=== PATIENT | male | born 1995 | race African-American/Black ===

== ENCOUNTER 2018-11-11 15:34 | Emergency (ER) | payer OTHER ==
[2018-11-11] MEDS ORDERED: ONDANSETRON 4 MG/2 ML VIAL IVP ONE (15:55)
[2018-11-11] MEDS ORDERED: NS(*) 0.9% 1000 ML BAG 1,000 ML IV ONE (15:55)
--- NOTE | 2018-11-11 15:57 | ER Report ---
History and Physical Time Seen By MD: 15:50 Hx. of Stated Complaint: weakness diff breathing HPI/ROS CHIEF COMPLAINT: Chest pain HISTORY OF PRESENT ILLNESS: This is a 22-year-old male who presents to the emergency department for chest pain. 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 Patient arrives with rapid breathing, coughing however he is alert and oriented. No history of asthma. Otherwise healthy. No recent illnesses. No rashes. No nausea or vomiting. REVIEW OF SYSTEMS: Constitutional: No fever, no chills. Eyes: No discharge. ENT: No sore throat. Cardiovascular: As above. Respiratory: As above. Gastrointestinal: No abdominal pain, no vomiting. Genitourinary: No hematuria. Musculoskeletal: No back pain. Skin: No rashes. Neurological: No headache. Allergies: Coded Allergies: No Known Allergies (Verified Allergy, Unknown, 11/11/18) Home Meds Active Scripts Albuterol Sulfate 90 Mcg/Act (PROAIR HFA 90 MCG/ACT) 8.5 Gm Hfa.aer.ad, 1-2 PUFF IH 3-4XD, #1 INHALER 0 Refills Prov:ALISE GIEMNEZ Jenniffer [employer]WORK CONS[employer]ANT- 11/11/18 Past Medical/Surgical History The patient has a past medical and surgical history of wisdom teeth extraction. Constitutional Vital Sign - Last 24 Hours 11/11/18 11/11/18 11/11/18 11/11/18 15:41 15:53 16:00 16:30 Temp 98.1 Pulse 87 Resp 22 B/P (MAP) 112/75 (87) 112/75 109/70 (83) 124/87 (99) Pulse Ox 93 O2 Delivery Room Air 11/11/18 11/11/18 11/11/18 11/11/18 16:34 16:34 16:34 17:00 Pulse 84 78 Resp 18 18 B/P (MAP) 121/74 (90) Pulse Ox 96 99 O2 Delivery Room Air 11/11/18 11/11/18 11/11/18 11/11/18 17:04 17:09 17:51 18:09 Pulse 89 89 81 Resp 17 24 9 B/P (MAP) 122/70 (87) Pulse Ox 88 92 96 11/11/18 11/11/18 18:14 18:30 Pulse 82 Resp 12 B/P (MAP) 108/75 (86) Pulse Ox 93 Physical Exam General Appearance: The patient is alert, has no immediate need for airway protection and no signs of toxicity, coughing, very anxious. Eyes: Pupils equal and round no pallor or injection. ENT, Mouth: Mucous membranes are moist. Respiratory: There are no retractions, lungs are clear to auscultation. Cardiovascular: Regular rate and rhythm, systolic murmur, no clicks or rubs. Gastrointestinal: Abdomen is soft and non tender, no masses, bowel sounds normal. Neurological: Alert and oriented 4. Moving all extremities. Following all commands. No focal neuro deficits. Skin: Warm and dry, no rashes. Musculoskeletal: Neck is supple non tender. Extremities are nontender, nonswollen and have full range of motion. DIFFERENTIAL DIAGNOSIS: After history and physical exam differential diagnosis was considered for chest pain including but not limited to myocardial ischemia, pericarditis pulmonary embolus, chest wall pain, pleural inflammation and pulmonary infectious causes. Medical Decision Making Data Points Result Diagram: 11/11/18 1545 11/11/18 1545 Laboratory Hematology Test 11/11/18 15:45 Red Blood Count 5.76 M/uL (4.00-5.60) Mean Corpuscular Volume 93.8 fL (80.0-96.0) Mean Corpuscular Hemoglobin 31.4 pg (26.0-33.0) Mean Corpuscular Hemoglobin Concent 33.4 g/dL (32.0-36.0) Red Cell Distribution Width 14.1 % (11.5-14.5) Mean Platelet Volume 7.1 fL (7.2-11.1) Neutrophils (%) (Auto) 74.8 % (39.4-72.5) Lymphocytes (%) (Auto) 18.3 % (17.6-49.6) Monocytes (%) (Auto) 6.1 % (4.1-12.4) Eosinophils (%) (Auto) 0.3 % (0.4-6.7) Basophils (%) (Auto) 0.5 % (0.3-1.4) Nucleated RBC Relative Count (auto) 0.1 /100WBC Neutrophils # (Auto) 6.4 K/uL (2.0-7.4) Lymphocytes # (Auto) 1.6 K/uL (1.3-3.6) Monocytes # (Auto) 0.5 K/uL (0.3-1.0) Eosinophils # (Auto) 0.0 K/uL (0.0-0.5) Basophils # (Auto) 0.0 K/uL (0.0-0.1) Nucleated RBC Absolute Count (auto) 0.01 K/uL D-Dimer Quantitative (PE/DVT) < 0.27 ug/ml (0-0.50) Sodium Level 141 mmol/L (137-145) Potassium Level 4.1 mmol/L (3.5-5.0) Chloride Level 103 mmol/L (98-107) Carbon Dioxide Level 17 mmol/L (22-30) Blood Urea Nitrogen 15 mg/dl (9-21) Creatinine 1.40 mg/dl (0.66-1.25) Glomerular Filtration Rate Calc > 60.0 Random Glucose 71 mg/dl (75-110) Calcium Level 9.9 mg/dl (8.4-10.2) Total Bilirubin 0.8 mg/dl (0.2-1.3) Aspartate Amino Transf (AST/SGOT) 35 U/L (0-35) Alanine Aminotransferase (ALT/SGPT) 26 U/L (0-56) Alkaline Phosphatase 77 U/L (0-126) Troponin I < 0.012 ng/ml Total Protein 8.6 g/dl (6.3-8.2) Albumin 5.4 g/dl (3.5-5.0) Chemistry Test 11/11/18 15:45 White Blood Count 8.5 k/uL (4.5-11.0) Red Blood Count 5.76 M/uL (4.00-5.60) Hemoglobin 18.1 g/dL (14.0-18.0) Hematocrit 54.1 % (42.0-52.0) Mean Corpuscular Volume 93.8 fL (80.0-96.0) Mean Corpuscular Hemoglobin 31.4 pg (26.0-33.0) Mean Corpuscular Hemoglobin Concent 33.4 g/dL (32.0-36.0) Red Cell Distribution Width 14.1 % (11.5-14.5) Platelet Count 238 K/uL (150-450) Mean Platelet Volume 7.1 fL (7.2-11.1) Neutrophils (%) (Auto) 74.8 % (39.4-72.5) Lymphocytes (%) (Auto) 18.3 % (17.6-49.6) Monocytes (%) (Auto) 6.1 % (4.1-12.4) Eosinophils (%) (Auto) 0.3 % (0.4-6.7) Basophils (%) (Auto) 0.5 % (0.3-1.4) Nucleated RBC Relative Count (auto) 0.1 /100WBC Neutrophils # (Auto) 6.4 K/uL (2.0-7.4) Lymphocytes # (Auto) 1.6 K/uL (1.3-3.6) Monocytes # (Auto) 0.5 K/uL (0.3-1.0) Eosinophils # (Auto) 0.0 K/uL (0.0-0.5) Basophils # (Auto) 0.0 K/uL (0.0-0.1) Nucleated RBC Absolute Count (auto) 0.01 K/uL D-Dimer Quantitative (PE/DVT) < 0.27 ug/ml (0-0.50) Glomerular Filtration Rate Calc > 60.0 Calcium Level 9.9 mg/dl (8.4-10.2) Total Bilirubin 0.8 mg/dl (0.2-1.3) Aspartate Amino Transf (AST/SGOT) 35 U/L (0-35) Alanine Aminotransferase (ALT/SGPT) 26 U/L (0-56) Alkaline Phosphatase 77 U/L (0-126) Troponin I < 0.012 ng/ml Total Protein 8.6 g/dl (6.3-8.2) Albumin 5.4 g/dl (3.5-5.0) Coagulation Test 11/11/18 15:45 D-Dimer Quantitative (PE/DVT) < 0.27 ug/ml EKG/Imaging EKG Interpretation 12 lead EKG: Time of EKG 1541. Rhythm: Normal sinus rhythm, ventricular rate 87 BPM. [place]: normal QRS: normal ST segments: No ST depression or elevation identified. Imaging Location: [facility] Patient: Hu Santiago : 1995 Visit/Account:[id number] Date of Sevice: 11/11/2018 CHEST SINGLE AP Indication: Cough and shortness of breath. Chest pain and fatigue.. Comparison: None available Findings: Cardiomediastinal silhouette and pulmonary vessels within normal limits. There is no focal infiltrate or lobar consolidation. No pneumothorax or pleural effusion. No nodule. Upper abdomen is unremarkable. No acute bony abnormality. IMPRESSION: 1. No acute cardiopulmonary process. Report Dictated By: Roosevelt Herbert at 11/11/2018 4:16 PM Report E-Signed By: Roosevelt Herbert at 11/11/2018 4:17 PM [id number] Location: [facility] Patient: Hu Santiago : 1995 Visit/Account:[id number] Date of Sevice: 11/11/2018 CT angiogram chest with contrast Indication: Cough. Fever and leg something stuck in the chest. Comparison: None available. Technique: Axial CT images are obtained through the chest after administration of 75 mL Isovue 370 IV contrast. Reformatted coronal and sagittal images were reviewed as well as coronal MIP images. One of the following dose optimization techniques was utilized in the pe rformance of this exam: automated exposure control; adjustment of the mA and/or kV according to the patient's size; or use of an iterative reconstruction technique. Specific details can be referenced in the facility's radiology CT exam operational policy. FINDINGS: No evidence of filling defect within the pulmonary vasculature to suggest pulmonary embolus. Heart is normal size without pericardial effusion. Aorta shows no aneurysm or dissection. The mediastinum and hilar regions show no enlarged lymph nodes or abnormal density. Lungs show no consolidations, pleural effusion or pneumothorax. No discrete nodule or focal interstitial opacities. Airways are clear. Bony structures show no fractures or aggressive bony lesions. Chest wall shows no enlarged axillary lymph nodes or masses. Limited views of the upper abdomen are unremarkable. IMPRESSION: 1. No evidence of pulmonary embolus. 2. No acute cardiothoracic abnormality 3. No radiopaque foreign body. Report Dictated By: Roosevelt Herbert at 11/11/2018 6:19 PM Report E-Signed By: Roosevelt Herbert at 11/11/2018 6:28 PM [id number] ED Course/Re-evaluation Clinical Indication for ER IV: Hydration, IV Access ED Course The patient was admitted to room. A history of square pain. Differential diagnoses were considered. An IV was started. A CBC, CMP, troponin and d-dimer were obtained. Patient was given 1 DuoNeb with some relief of his coughing however he continued, Saying that he felt something up in his neck was causing his cough. Nothing noted on physical exam however there was a new murmur that the patient was not aware of, neither was the lion trainer who is at the bedside. The team physician did show up and was updated as well.CBC showing rbc's 5.76, H&H 18.1 and 54.1, mild left shift, CO2 17, creatinine 1.4, negative troponin, negative d-dimer. EKG showing normal sinus rhythm, no concerning findings. Negative two-view chest x-ray. With the abrupt onset and the physical exertion involved although the chest x-ray was negative and negative d-dimer, I did recommend a CT of the chest I was concerned with a pneumomediastinum, they were agreeable, the patient's CT was negative for pneumomediastinum, no cardiothoracic concerns. I reviewed the results with the patient, he was okay with the team physician and lion trainer being given this information, we did discuss the murmur, the team physician will follow-up on this, I did send the patient home with a prescription for albuterol inhaler as this did seem to provide some relief in the emergency room. He was also given a 1 L normal saline bolus. I did tell him that he must drink more water, his H&H and creatinine showing dehydration. Patient denied taking creatine or any other muscle building supplements. They were relieved with the results. And no other questions or concerns at this time and discharged home. 11/11/2018 5:39:49 pm I did speak with the patient and the lion trainer, I did tell them I was concerned about the rapid onset and persistent coughing, and I was concerned he may have a pneumomediastinum. Decision to Disposition Date: Nov 11, 2018 Decision to Disposition Time: 18:38 Depart Departure Latest Vital Signs Vital Signs Date Time Temp Pulse Resp B/P (MAP) Pulse Ox O2 Delivery O2 Flow Rate FiO2 11/11/18 18:30 108/75 (86) 11/11/18 18:14 82 12 93 11/11/18 16:34 Room Air 11/11/18 15:53 98.1 Impression: Primary Impression: Chest pain of unknown etiology Additional Impression: Cough Condition: Improved Disposition: HOME OR SELF-CARE Referrals: SUHA CARO DO STUDENT [facility] New Scripts Albuterol Sulfate 90 Mcg/Act (PROAIR HFA 90 MCG/ACT) 8.5 Gm Hfa.aer.ad 1-2 PUFF IH 3-4XD, #1 INHALER 0 Refills Prov: ALISE GIMENEZ 11/11/18 Patient Instructions: Acute Cough (ED), Chest Pain (ED), Dyspnea (ED) Additional Instructions: There were no concerning findings on the chest x-ray, EKG or CT. The only thing that we've noted is the murmur on physical exam, please have this evaluated by the team doctor as well as cardiology. Be sure to drink plenty of water. Get plenty of rest. Use the nebulizers that the team physician has available to as needed. Return to the emergency department for any other concerns or worsening symptoms. Problem Qualifiers ALISE GIMENEZ Nov 11, 2018 15:57
[2018-11-11 16:09] LABS: PLATELET COUNT, AUTOMATED 238 K/uL (150-450)
[2018-11-11] MEDS ORDERED: ALBUTEROL/IPRATROPIUM 3 ML NEB NEB ONE (16:20)
--- NOTE | 2018-11-11 16:21 | RADIOLOGY IMAGING REPORT ---
FACILITY: [facility] [place] PATIENT NAME: Hu Santiago : 1995 MR: [id number] V: [id number] EXAM DATE: ORDERING PHYSICIAN: ALISE GIMENEZ TECHNOLOGIST: Location: [facility] [place] Patient: Hu Santiago : 1995 Visit/Account:[id number] Date of Sevice: 11/11/2018 CHEST SINGLE AP Indication: Cough and shortness of breath. Chest pain and fatigue.. Comparison: None available Findings: Cardiomediastinal silhouette and pulmonary vessels within normal limits. There is no focal infiltrate or lobar consolidation. No pneumothorax or pleural effusion. No nodule. Upper abdomen is unremarkable. No acute bony abnormality. IMPRESSION: 1. No acute cardiopulmonary process. Report Dictated By: Roosevelt Herbert at 11/11/2018 4:16 PM Report E-Signed By: Roosevelt Herbert at 11/11/2018 4:17 PM [id number]
--- NOTE | 2018-11-11 16:41 | EKG ---
FACILITY: [facility] [place] PATIENT NAME: JULIETA VERDUGO : [id number] MR: [id number] V: [id number] EXAM DATE: ORDERING PHYSICIAN: ALISE GIMENEZ TECHNOLOGIST: LEATHA Valderrama Reason : Blood Pressure : / mmHG Vent. Rate : 087 BPM Atrial Rate : 087 BPM P-R Int : 158 ms QRS Dur : 078 ms QT Int : 392 ms P-R-T Axes : 069 068 044 degrees QTc Int : 471 ms Normal sinus rhythm Normal ECG No previous ECGs available Confirmed by Osbaldo Malcolm ([id number]) on 11/11/2018 11:25:45 PM Referred By: Confirmed By:Osbaldo ePrry
[2018-11-11] MEDS ORDERED: IOPAMIDOL 76% 100 ML INFUS BTL 100 ML ONE (17:45)
[2018-11-11] MEDS ORDERED: NS(*) 0.9% 50 ML BAG 50 ML ONE (17:45)
[2018-11-11 18:30] VITALS: BP 108/75
--- NOTE | 2018-11-11 18:32 | RADIOLOGY IMAGING REPORT ---
FACILITY: [facility] PATIENT NAME: Hu Santiago : 1995 MR: [id number] V: [id number] EXAM DATE: ORDERING PHYSICIAN: ALISE GIMENEZ TECHNOLOGIST: Location: [facility] Patient: Hu Santiago : 1995 Visit/Account:[id number] Date of Sevice: 11/11/2018 CT angiogram chest with contrast Indication: Cough. Fever and leg something stuck in the chest. Comparison: None available. Technique: Axial CT images are obtained through the chest after administration of 75 mL Isovue 370 IV contrast. Reformatted coronal and sagittal images were reviewed as well as coronal MIP images. One of the following dose optimization techniques was utilized in the performance of this exam: auto mated exposure control; adjustment of the mA and/or kV according to the patient's size; or use of an iterative reconstruction technique. Specific details can be referenced in the facility's radiology C T exam operational policy. FINDINGS: No evidence of filling defect within the pulmonary vasculature to suggest pulmonary embolus. Heart is normal size without pericardial effusion. Aorta shows no aneurysm or dissection. The mediast inum and hilar regions show no enlarged lymph nodes or abnormal density. Lungs show no consolidations, pleural effusion or pneumothorax. No discrete nodule or focal interstit ial opacities. Airways are clear. Bony structures show no fractures or aggressive bony lesions. Chest wall shows no enlarged axillary l ymph nodes or masses. Limited views of the upper abdomen are unremarkable. IMPRESSION: 1. No evidence of pulmonary embolus. 2. No acute cardiothoracic abnormality 3. No radiopaque foreign body. Report Dictated By: Roosevelt Herbert at 11/11/2018 6:19 PM Report E-Signed By: Roosevelt Herbert at 11/11/2018 6:28 PM [id number]
[2018-11-11] MEDS ORDERED: ALBU8.5H IH (18:50)
== END 2018-11-11 18:53 | disposition home or self-care (01) ==
LOC: ER 16:04
DX: R07.9 Chest pain, unspecified (principal); R05 Cough
CPT/HCPCS: 71045; 71275; 84484; 85025; 85379; 93005; 94640; 96374; 99284; J2405; J7030; J7050; J7620; Q9967; 82040; 82247; 82310; 82374; 82435; 82565; 82947; 84075; 84132; 84155; 84295; 84450; 84460; 84520

== ENCOUNTER 2018-11-25 13:08 | Outpatient (RCR) | payer OTHER ==
[~2018-11-25 13:08] MED LIST: ALBU8.5H IH
== END 2018-11-26 18:00 | disposition home or self-care (01) ==
LOC: EDSTATUS 13:08 → US 13:08
PROVIDERS: ATTEND Emergency Medicine Sports Medicine
DX: I37.1 Nonrheumatic pulmonary valve insufficiency (principal)
CPT/HCPCS: 93306